=== PATIENT | female | born 1955 | race Two or more races ===

== ENCOUNTER 2022-03-29 20:24 | Emergency (ER) | payer MEDICARE, OTHER ==
[~2022-03-29] VITALS: Ht 152.4 cm; Wt 90.7 kg
--- NOTE | 2022-03-29 20:55 | NUR ---
TO ER BED 11. BIBRA 878 FROM HOME C/O BILATERAL KNEE PAIN S/P GLF. PT IS ALERT AND ORIENTED. RR EVEN AND NON LABORED. CONNECTED TO MONITOR. WOUND NOTED ON TOP LIP, OPEN TO AIR, NOT ACTIVELY BLEEDING. FALL PRECAUTIONS IN PLACE. AWAITING MD BERRY
[2022-03-29] MEDS ORDERED: HYDROCODONE/APAP 5/325MG TABLET PO ONE (22:30)
[2022-03-29] MEDS ORDERED: TDAP [DIPH/PERTUSSIS/TET] 0.5 ML VIAL IM ONE ×2 (22:30→22:34)
[2022-03-29] MEDS ORDERED: HYDROCODONE/APAP 5/325MG TABLET ONE (22:34)
[2022-03-30] MEDS ORDERED: ONDANSETRON 4 MG TAB.RAPDIS ONE (00:14)
[2022-03-30] MEDS ORDERED: CYCL5TAB PO (00:15)
[2022-03-30] MEDS ORDERED: IBUP-1955 PO (00:15)
--- NOTE | 2022-03-30 00:27 | NUR ---
Patient discharged to home in stable condition. Written and verbal after care instructions given. Patient verbalizes understanding of instruction.
[2022-03-30 00:28] VITALS: BP 146/80
[2022-03-30] MEDS ORDERED: ONDANSETRON 4 MG TAB.RAPDIS PO ONE (00:30)
[2022-03-30] MEDS ORDERED: IBUPROFEN 600 MG TABLET PO ONE (00:30)
[2022-03-30] MEDS ORDERED: BACI/NEOM/POLY B OINT PKT 1 UDPKT PACKET TP ONE (00:30)
== END 2022-03-30 00:30 | disposition home or self-care (01) ==
LOC: ER 20:26
DX: S00.81XA Abrasion of other part of head, initial encounter (principal); S80.212A Abrasion, left knee, initial encounter; S80.211A Abrasion, right knee, initial encounter; S50.812A Abrasion of left forearm, initial encounter; M25.532 Pain in left wrist; M25.562 Pain in left knee; M25.561 Pain in right knee; R51.9 Headache, unspecified; E78.5 Hyperlipidemia, unspecified; W01.0XXA Fall on same level from slipping, tripping and stumbling without subsequent striking against object, initial encounter; Y93.17 Activity, water skiing and wake boarding; Y92.89 Other specified places as the place of occurrence of the external cause; Y99.8 Other external cause status
CPT/HCPCS: 99284; 70450; 90471; 90715; 73564 ×2; 70486; 73110; Q0162